=== PATIENT | male | born 1955 | race Caucasian/White ===

== ENCOUNTER 2021-11-26 12:45 | Inpatient (IN) | payer MEDICARE, OTHER ==
[~2021-11-26] VITALS: Ht 154.9 cm; Wt 69.9 kg
[2021-11-26 12:57] VITALS: BP 139/70
--- NOTE | 2021-11-26 13:19 | NUR ---
PT W/C ASSISTED TO ER BED 9
[2021-11-26] MEDS ORDERED: ALBUTEROL SULFATE/IPRATROPIU 3 ML SOL IH ONE (13:25)
--- NOTE | 2021-11-26 13:40 | NUR ---
66 Y/O Male BIB primary health care nurse from care facility for c/o SOB/cough x today. Pt on 10LPM via mask, 98% SP02. Pt is awake and able to answer simple yes or no questions. Resp even and unlabored. Coarse crackles heard x all bilat. Caregiver at bedside. PmHX: HTN, IDD, Depression, behavioral disorder, asthma, HLD NKA
[2021-11-26] MEDS ORDERED: NACL 0.9% 500 ML IV ONE (14:15)
[2021-11-26 14:34] LABS: ALBUMIN 3.2 g/dL (3.4-5.0); ANION GAP 13.4 (8-16); CARBON DIOXIDE 26.4 mmol/L (21-32); CREATININE 0.8 mg/dL (0.6-1.3); POTASSIUM 3.8 mmol/L (3.5-5.1); TOTAL BILIRUBIN 0.2 mg/dL (0.0-1.0)
--- NOTE | 2021-11-26 14:56 | NUR ---
COVID swab taken and walked to lab.
[2021-11-26 15:52] LABS: BASOPHILS % (AUTO) 0.4 % (0.0-2.0); EOSINOPHILS # (AUTO) 0.1 K/uL (0-0.4); EOSINOPHILS % (AUTO) 1.3 % (0.0-4.0); HEMATOCRIT 31.8 % (36-52); HEMOGLOBIN 10.8 g/dL (12.0-18.0); LYMPHOCYTES # (AUTO) 1.7 K/uL (2.0-11.5); LYMPHOCYTES % (AUTO) 24.3 % (20.5-51.1); MEAN CORPUSCULAR HEMOGLOBIN 29 pg (27-31); MEAN CORPUSCULAR HGB CONC 34 g/dL (33-37); MEAN CORPUSCULAR VOLUME 84.1 fL (80-94); MONOCYTES # (AUTO) 0.8 K/uL (0.8-1.0); MONOCYTES % (AUTO) 11.7 % (1.7-9.3); NEUTROPHILS # (AUTO) 4.2 K/uL (1.8-7.7); NEUTROPHILS % (AUTO) 62.3 % (42.2-75.2); PLATELET COUNT (AUTO) 172 K/uL (140-450); RED BLOOD CELL COUNT(AUTO) 3.78 MIL/uL (4.20-6.10); RED CELL DISTRIBUTION WIDTH 16.6 % (11.6-13.7); WHITE BLOOD COUNT (AUTO) 6.8 K/uL (4.8-10.8)
--- NOTE | 2021-11-26 18:00 | NUR ---
Patient appears to be resting comfortably in bed. Vital Signs within normal limits. Respirations even and unlabored.
--- NOTE | 2021-11-26 19:11 | NUR ---
Pt report given to RENÉE Velez. Transfer of care at this time.
--- NOTE | 2021-11-26 19:20 | NUR ---
pt appears to be resting with equal rise and fall of chest wall. sister/legal guardian glory is at bedside. pt is on library monitor, 02 via nc at 6l cont.
--- NOTE | 2021-11-26 20:41 | NUR ---
pt's diaper changed, only urine noted. good pericare provided. diaper and sheets changed.
--- NOTE | 2021-11-26 20:45 | NUR ---
pt provided with snacks. sister glory assisting.
[2021-11-26] MEDS ORDERED: CITA20TA15 PO (20:48)
[2021-11-26] MEDS ORDERED: ACET-2619 PO (20:48)
[2021-11-26] MEDS ORDERED: OLAN15TA1 PO (20:48)
[2021-11-26] MEDS ORDERED: OMEP20EC11 PO (20:48)
[2021-11-26] MEDS ORDERED: DIVA250T PO (20:48)
[2021-11-26] MEDS ORDERED: DOCU-61 PO (20:48)
[2021-11-26] MEDS ORDERED: METF-713 PO (20:48)
[2021-11-26] MEDS ORDERED: PRON INH (20:48)
[2021-11-26] MEDS ORDERED: ASPI-1822 PO (20:48)
[2021-11-26] MEDS ORDERED: ATOR20TA PO (20:48)
[2021-11-26] MEDS ORDERED: LORA10TA19 PO (20:48)
[2021-11-26] MEDS ORDERED: OLAN2.5T1 PO (20:48)
[2021-11-26] MEDS ORDERED: LISI5TAB18 PO (20:48)
--- NOTE | 2021-11-26 21:07 | NUR ---
Patient will be admitted to care of [facility]. Admited to tele. Will go to [id number]. Belongings list completed. Report to gay soliman.
[2021-11-26] MEDS ORDERED: ACETAMINOPHEN 325 MG TAB PO PRN ×2 (21:10)
[2021-11-26] MEDS ORDERED: MORPHINE SULFATE 2 MG/ML SYR IVP PRN (21:10)
[2021-11-26] MEDS ORDERED: guaiFENesin DM 200/20 MG-10 ML 10 ML UDC PO PRN (21:10)
[2021-11-26] MEDS ORDERED: NITROGLYCERIN 0.4 MG TAB SL PRN (21:10)
[2021-11-26] MEDS ORDERED: ZOLPIDEM 5 MG TAB PO PRN (21:10)
[2021-11-26] MEDS ORDERED: HYDROcodone/APAP 7.5/325 MG 1 TAB PO PRN (21:10)
[2021-11-26] MEDS ORDERED: POTASSIUM CHLORIDE 10 MEQ TABER PO PRN (21:10)
[2021-11-26] MEDS ORDERED: ONDANSETRON 4 MG/2 ML VIAL IM/IVP PRN (21:10)
[2021-11-26] MEDS ORDERED: DOCUSATE SODIUM 100 MG GELCAP PO PRN (21:10)
--- NOTE | 2021-11-26 21:10 | NUR ---
PT ADMITTED TO [facility] FROM ER THRU [facility]. PT DIAGNOSIS IS NSTEMI AND HYPONATREMIA. PT IS AOX1 ON NC AT 6L AND ON CARDIAC DIET. PT HAS SALINE LOCK ON LEFT AC GAUGE 20. PT IS WITH HER SISTER IN BED SIDE. HOSPITAL/ROOM ORIENTATION, BED BUTTON AND CALL LIGHT WAS ORIENTED. ALL SAFETY MEASURES IMPLEMENTED. BED WHEELS ON LOCKED AND BED IN LOW POSITION.
[2021-11-26 22:06] LABS: MAGNESIUM 1.2 mg/dL (1.8-2.4); PHOSPHORUS 2.7 mg/dL (2.5-4.9)
--- NOTE | 2021-11-26 22:10 | NUR ---
NOTIFIED DR. HAWLEY REGARDING PT CRITICAL VALUE. TROPONIN-310, MAGNESIUM 1.2 AND AMYLASE 474.
--- NOTE | 2021-11-26 22:26 | NUR ---
DR. MCKNIGHT ORDERED IV MAGNESIUM GRAMS FOR 1 TIME. NEW ORDER WAS MADE AND CARRIED OUT.
[2021-11-26] MEDS: DIVALPROEX 250 MG TABEC PO SCH (22:44)
--- NOTE | 2021-11-26 22:44 | NUR ---
SCHEDULE MEDICATION WAS GIVEN TO PT PER MD ORDER. PT TOLERATED IT WELL. ALL SAFETY MEASURES IMPLEMENTED. CALL LIGHT WITHIN REACH, BED WHEELS LOCK AND BED IN LOW POSITION.
[2021-11-26] MEDS: ENOXAPARIN 80 MG/0.8 ML SYR SUBQ SCH (22:49)
[2021-11-26] MEDS: MAG SULF 2000 MG/WATER PREMIX 50 ML IV SCH (23:13)
--- NOTE | 2021-11-26 23:13 | NUR ---
1ST BAG OF MAGNESIUM SULFATE 2000MG/STERILE WATER PREMIX 50ML WAS GIVEN TO PT PER MD ORDER. PT TOLERATED IT WELL. ALL SAFETY MEASURES IMPLEMENTED. CALL LIGHT WITHIN REACH, BED WHEELS ON LOCKED AND BED IN LOW POSITION.
[2021-11-27] VITALS: BP 111/98
[2021-11-27] MEDS: MAG SULF 2000 MG/WATER PREMIX 50 ML IV SCH (01:43)
--- NOTE | 2021-11-27 03:00 | NUR ---
PT IS SLEEPING. CHEST RISE AND FALL SYMMETRICALLY NOTED. RESPIRATION IS EVEN AND UNLABORED. ALL SAFETY MEASURES IMPLEMENTED. BED WHEELS ON LOCKED, BED IN LOW POSITION AND CALL LIGHT WITHIN REACH.
[2021-11-27 04:02] VITALS: BP 113/79
--- NOTE | 2021-11-27 05:00 | NUR ---
MORNING CARE WAS DONE TO PT. TOLERATED IT WELL. ALL SAFETY MEASURES IMPLEMENTED. CALL LIGHT WITHIN REACH, BED IN LOW POSITION AND BED WHEELS LOCKED.
[2021-11-27 06:54] LABS: BASOPHILS % (AUTO) 0.1 % (0.0-2.0); HEMATOCRIT 37.2 % (36-52); HEMOGLOBIN 12.4 g/dL (12.0-18.0); LYMPHOCYTES # (AUTO) 0.5 K/uL (2.0-11.5); LYMPHOCYTES % (AUTO) 6.1 % (20.5-51.1); MEAN CORPUSCULAR HEMOGLOBIN 28 pg (27-31); MEAN CORPUSCULAR HGB CONC 33 g/dL (33-37); MEAN CORPUSCULAR VOLUME 84.5 fL (80-94); MONOCYTES # (AUTO) 0.9 K/uL (0.8-1.0); MONOCYTES % (AUTO) 10.1 % (1.7-9.3); NEUTROPHILS # (AUTO) 7.1 K/uL (1.8-7.7); NEUTROPHILS % (AUTO) 83.7 % (42.2-75.2); PLATELET COUNT (AUTO) 190 K/uL (140-450); RED CELL DISTRIBUTION WIDTH 16.8 % (11.6-13.7); WHITE BLOOD COUNT (AUTO) 8.5 K/uL (4.8-10.8)
[2021-11-27 07:11] LABS: ANION GAP 13.9 (8-16); CARBON DIOXIDE 27.9 mmol/L (21-32); POTASSIUM 3.8 mmol/L (3.5-5.1)
--- NOTE | 2021-11-27 07:12 | NUR ---
PT IS STABLE. ENDORSED PT TO MORNING SHIFT NURSE FOR CONTINUITY OF CARE.
[2021-11-27 07:22] LABS: APPEARANCE,URINE CLEAR (CLEAR); BILIRUBIN,URINE NEGATIVE (NEGATIVE); BLOOD, URINE 1+ (NEGATIVE); COLOR,URINE YELLOW (YELLOW); LEUKOCYTE ESTERASE ,URINE NEGATIVE (NEGATIVE); NITRITE, URINE NEGATIVE (NEGATIVE); PH,URINE 6.5 (5.0-9.0); UGLUCOSE NEGATIVE (NEGATIVE)
--- NOTE | 2021-11-27 07:30 | NUR ---
RECEIVED REPORT FROM CHUTE MAN NURSE FOR CONTINUITY OF CARE, POC DISCUSSED. PT IS RESTING IN BED WITH SISTER AT BEDSIDE. PT ON 6L NC, CHEST RISING AND FALLING EVEN AND UNLABORED. NO S/S OF ACUTE DISTRESS. PT VERBAL, A&OX1, INCONTINENT ON DIAPER, LEFT AC 20G SALINE LOCK. SKIN INTACT. ALL SAFETY MEASURES IN PLACE, CALL LIGHT WITHIN REACH. WILL CONTINUE TO MONITOR.
[2021-11-27 07:40] LABS: BARBITURATE, URINE NEGATIVE ng/ml (NEG <=200); BENZODIAZEPINE, URINE NEGATIVE ng/mL (NEG <=200); CANNABINOID, URINE NEGATIVE ng/mL (NEG <=50); COCAINE, URINE NEGATIVE ng/mL (NEG <=300); OPIATE, URINE NEGATIVE ng/mL (NEG <=2000); PHENCYCLIDINE SCREEN,URINE NEGATIVE ng/mL (NEG <=25)
[2021-11-27 07:41] LABS: CALCIUM OXALATE CRYSTALS,UR None Seen /HPF (None Seen); COARSE GRANULAR CASTS,URINE None Seen /LPF (None Seen); FINE GRANULAR CASTS,URINE None Seen /LPF (None Seen); HYALINE CASTS, URINE None Seen /LPF (None Seen); OTHER CASTS, URINE None Seen /LPF (None Seen); OTHER CRYSTALS,URINE None Seen /HPF (None Seen); RED BLOOD CELL CASTS,URINE None Seen /LPF (None Seen); TRICHOMONAS,URINE None Seen /HPF (None Seen); TRIPLE PHOSPHATE CRYSTAL,UR None Seen /HPF (None Seen); URIC ACID CRYSTALS,URINE None Seen /HPF (None Seen); URINE AMORPHOUS URATE None Seen /HPF (None Seen); WAXY CASTS,URINE None Seen /LPF (None Seen); WBC,URINE NONE SEEN /HPF (0-5); YEAST,URINE None Seen /HPF (None Seen)
[2021-11-27 08:00] VITALS: BP 128/78
[2021-11-27] MEDS: ALBUTEROL 0.083% 2.5 MG/3 ML NEBU INH PRN ×2 (08:11→14:03)
--- NOTE | 2021-11-27 08:48 | NUR ---
PATIENT HAS BEEN SCREENED AND CATEGORIZED LOW NUTRITION RISK. PATIENT WILL BE SEEN WITHIN 7 DAYS OF ADMISSION. 12/03/[address]
[2021-11-27] MEDS ORDERED: CRUSHER, PILL MC ONE (08:58)
[2021-11-27] MEDS ORDERED: METOPROLOL 25 MG TAB PO SCH (09:00)
[2021-11-27] MEDS ORDERED: NON-FORMULARY ITEM (Omeprazole* (Prilosec*) 20 MG) PO SCH (09:00)
[2021-11-27] MEDS: lisinopriL 5 MG TAB PO SCH (09:07)
[2021-11-27] MEDS: ENOXAPARIN 80 MG/0.8 ML SYR SUBQ SCH (09:10)
[2021-11-27] MEDS: ECOTRIN 81 MG TABEC PO SCH (09:11)
[2021-11-27] MEDS: DIVALPROEX 250 MG TABEC PO SCH ×2 (09:11→21:01)
[2021-11-27] MEDS: PANTOPRAZOLE 40 MG TABEC PO SCH (09:11)
[2021-11-27] MEDS: DOCUSATE SODIUM 100 MG GELCAP PO SCH (09:12)
[2021-11-27] MEDS ORDERED: LOVENOX 1MG/KG Q12H SUBQ SCH (09:25)
--- NOTE | 2021-11-27 09:30 | NUR ---
MARY MEDICATION ADMINISTERED PER MD ORDER, PT TOLERATED ADMINISTRATION. SISTER AT BEDSIDE, EDUCATION PROVIDED, SISTER VERBALIZED UNDERSTANDING. PT A&OX1, AWAKE, DEV DELAY. ON 3L NC NO S/S OF ACUTE DISTRESS. PT LUNG SOUNDS COARSE, DIMINISHED. PT IV PATENT AND INTACT, LEFT AC 20 G, REINFORCED WITH TAPE. SITTING UP IN BED EATING BREAKFAST. ALL SAFETY MEASURES IN PLACE, CALL LIGHT WITHIN REACH. WILL CONTINUE TO MONITOR.
[2021-11-27] MEDS: AZITHROMYCIN 500 MG in DEXTROSE 5% 250 ML IV SCH (10:47)
--- NOTE | 2021-11-27 11:00 | NUR ---
MARY ABX MEDICATION ADMINISTERED PER MD ORDER, PT TOLERATED ADMINISTRATION. PT IV PATENT AND INTACT. NOTIFIED DIRECTOR OF ACCOUNTING REGARDING PT NEEDING TO BE CLEANED AND REPOSITIONED. PT STABLE, WITH NO ACUTE S/S OF DISTRESS. ALL SAFETY MEASURES IN PLACE. CALL LIGHT WITHIN REACH. WILL CONTINUE TO MONITOR.
--- NOTE | 2021-11-27 11:20 | NUR ---
DC PLANNIN YRS OLD MALE PATIENT WAS ADMITTED FROM [facility]) WITH A DX OF NSTEMI, HYPONATREMIA. PATIENT HAS A HX OF ASTHMA AND DM. CXR SHOWED NO EVIDENCE OF ACUTE CARDIOPULMONARY. RAPID COVID TEST NEGATIVE. ON 3L/NC SATING 95%. ADMINISTERED IVF, IV ABX AZITHROMYCIN AND CONTINUED HOME MEDS. CONSULTED WITH NEPHRO AND CARDIO. FAXED THE STABLE FOR TRANSFER TO [facility]. CM TO FOLLOW Addendum: 11/28/21 at 0906 by Ember Rivers RN DC PLANNING: CALLED [facility] [phone] SPOKE WITH LAILA CASE WET POUR SUPERVISOR STATED THEY HAVE THE NOTIFICATION, BECAUSE OF THE HIGH [employer]UME DIDN'T REVIEW THE CASE AND NOT ASSIGNED WITH CM YET, AND REQUESTED THE ORDER TO BE FAXED AGAIN. CM FAXED THE STABLE FOR TRANSFER TO [phone]. CM TO FOLLOW Addendum: 11/28/21 at 1146 by Ember Rivers RN DC PLANNING: CALLED [facility] SPOKE WITH [facility] DISCUSSED THE DC WITH [facility] PER [facility] THEY CAN NOT TAKE PATIENT WITH OXYGEN, THEY ARE NOT LICENSED TO TAKE CARE OF OXYGEN. SPOKE WITH PT'S SISTER AGREED TO PLACE HIM TEMPORARY. FAXED TO [facility] AWAITING FOR [facility] RESPONSE. CM TO FOLLOW Addendum: 11/28/21 at 1600 by Ember Rivers RN DC PLANNING: RECEIVED A FAX SNF PLACEMENT FORM FROM [facility] , FILLED OUT THE FORM AND SENT IT BACK. DC PLAN AWAITING FOR [facility] TO PLACE HIM IN SKILLED FACILITY. CM TO FOLLOW Addendum: 11/29/21 at 1112 by Ember Rivers RN DC PLANNING: PATIENT IS ON ROOM AIR SATING 97% NO NEED TO GO TO SNF. CALLED [facility] SPOKE WITH [facility] OK TO ACCEPT HIM. CALLED [facility] SPOKE WITH DESIRE CM NOTIFIED HER THAT PT NO LONGER NEEDS SNF WILL GO BACK TO [facility]. PT SISTER ALLIE AT THE BED SIDE WILLING TO TAKE HIM TO THE [facility]. NOTIFIED JOSSELIN CHINCHILLA.
[2021-11-27 12:00] VITALS: BP 127/80
--- NOTE | 2021-11-27 12:00 | NUR ---
PT STABLE IN BED WITH NO ACUTE S/S OF DISTRESS. ALL SAFETY MEASURES IN PLACE, CALL LIGHT WITHIN REACH. WILL CONTINUE TO MONITOR.
--- NOTE | 2021-11-27 14:36 | NUR ---
EDUCATED ON HOW WE NEED TO COLLECT URINE SAMPLE, STATED THAT HE CAN USE THE URINAL WHEN HE IS AWAKE.
--- NOTE | 2021-11-27 15:19 | NUR ---
TOURING PRODUCTION MANAGER AT BEDSIDE CLEANING PT. PT STABLE ON 2L NC, ALL SAFETY MEASURES IN PLACE. CALL LIGHT WITHIN REACH. WILL CONTINUE TO MONITOR.
[2021-11-27] MEDS ORDERED: DEXTROSE 50% 50 ML SYR IVP PRN (15:20)
[2021-11-27 16:00] VITALS: BP 115/64
--- NOTE | 2021-11-27 16:19 | NUR ---
ROUNDED ON PT, PT RESTING IN BED ON 2L NC. SISTER AND BROTHER IN LAW AT BEDSIDE. ALL NEEDS ARE MET, NO QUESTIONS AT THIS TIME. ALL SAFETY MEASURES IN PLACE, CALL LIGHT WITHIN REACH. WILL CONTINUE TO MONITOR.
[2021-11-27] MEDS: BLOOD GLUCOSE MONITORING 1 DEV DEV FS SCH ×2 (16:39→21:13)
[2021-11-27] MEDS: INSULIN LISPRO SLIDING SCALE 100 UNITS/ML VIAL SUBQ PRN (16:39)
--- NOTE | 2021-11-27 16:44 | NUR ---
177 BLOOD GLUCOSE, 2UNITS OF INSULIN ADMINISTERED TO RIGHT LOWER QUAD. PT TOLERATED. URINE SAMPLE COLLECTED AND LABELED. ALL SAFETY MEASURES IN PLACE, SISTER VERBALIZED ALL NEEDS ARE MET AT THIS TIME. CALL LIGHT WITHIN REACH. WILL CONTINUE TO MONITOR.
[2021-11-27] MEDS ORDERED: ATORVASTATIN 20 MG TAB PO SCH (17:00)
--- NOTE | 2021-11-27 18:33 | NUR ---
PT SITTING UP IN BED WITH SISTER AT BEDSIDE, REPORTS ALL NEEDS ARE CURRENTLY BEING MET. EATING DINNER WITH ASSISTANCE FROM SISTER. ON 2L NC. ALL NEEDS HAVE BEEN MET THROUGHOUT THE SHIFT. PT STABLE. ON TELE. WILL ENDORSE PT AND POC TO SIGNS CLEANER NURSE. ALL SAFETY MEASURES IN PLACE, CALL LIGHT WITHIN REACH.
--- NOTE | 2021-11-27 19:00 | NUR ---
RECEIVED REPORT FROM MORNING SHIFT NURSE. PT IS LYING ON THE BED WITH SISTER ON BEDSIDE. PT IS AOX1, ON 2L NC AND HAS MECHANICAL SOFT CARDIAC DIET. PT WANTS FOR THE ASSISTANCE TO BED SIDE COMMAND AND TRY TO DEFECATE, BUT THERE'S NO BOWEL MOVEMENT. PT HAS LEFT AC G20, SALINE LOCK. ALL SAFETY MEASURES IMPLEMENTED, CALL LIGHT WITHIN REACH, BED WHEELS LOCKED AND BED IN LOW POSITION.
[2021-11-27 20:00] VITALS: BP 111/61
[2021-11-27 20:52] LABS: URINE SODIUM, RANDOM 20 mmol/l (40-220)
[2021-11-27] MEDS ORDERED: ENOXAPARIN 80 MG/0.8 ML SYR SUBQ SCH (21:00)
--- NOTE | 2021-11-27 21:01 | NUR ---
ALL SCHEDULE MEDICATION WAS GIVEN TO PT PER MD ORDER. PT TOLERATED IT WELL. ALL SAFETY MEASURES IMPLEMENTED, CALL LIGHT WITHIN REACH, BED WHEELS LOCKED AND BED IN LOW POSITION.
[2021-11-27] MEDS: OLANZapine 5 MG TAB PO SCH (21:02)
[2021-11-27] MEDS: CITALOPRAM 20 MG TAB PO SCH (21:02)
--- NOTE | 2021-11-27 22:00 | NUR ---
CHANGED DIAPER PER PT REQUESTED. PM CARE WAS DONE. ALL SAFETY MEASURES IMPLEMENTED. BED WHEELS ON LOCK, BED IN LOW POSITION AND CALL LIGHT WITHIN REACH.
[2021-11-28] VITALS: BP 121/62
--- NOTE | 2021-11-28 | NUR ---
PT IS SLEEPING. CHEST RISE AND FALL SYMMETRICALLY NOTED WITH SINUS TACHY RHYTHM AND WITH PULSE OF 108 SATING AT 98%. RESPIRATION IS EVEN AND UNLABORED. ALL SAFETY MEASURES IMPLEMENTED. BED WHEELS ON LOCK, BED IN LOW POSITION AND CALL LIGHT WITHIN REACH.
--- NOTE | 2021-11-28 02:00 | NUR ---
CHECKED THE PT, STILL SLEEPING. CHEST RISE AND FALL SYMMETRICALLY NOTED. RESPIRATION IS EVEN AND UNLABORED. ALL SAFETY MEASURES IMPLEMENTED. BED WHEELS LOCKED, BED IN LOW POSITION AND CALL LIGHT WITHIN REACH.
[2021-11-28 04:00] VITALS: BP 119/63
--- NOTE | 2021-11-28 04:00 | NUR ---
PT VS, BP-119/63, P-81, T-98.3, RR-18 SATING AT 99%. NO COMPLAIN OF PAIN NOTED AND NO S/S OF RESPIRATORY DISTRESS NOTED. ALL SAFETY MEASURES IMPLEMENTED. BED WHEELS LOCKED, BED IN LOW POSITION AND CALL LIGHT WITHIN REACH.
[2021-11-28] MEDS: BLOOD GLUCOSE MONITORING 1 DEV DEV FS SCH ×4 (06:51→20:24)
--- NOTE | 2021-11-28 06:51 | NUR ---
PT BLOOD GLUCOSE IS 95, NO INSULIN COVERAGE NEEDED. ALL SAFETY MEASURES IMPLEMENTED. CALL LIGHT WITHIN REACH, BED WHEELS LOCKED AND BED IN LOW POSITION.
--- NOTE | 2021-11-28 07:19 | NUR ---
PT IS STABLE. ENDORSED PT TO MORNING SHIFT NURSE FOR CONTINUITY OF CARE.
[2021-11-28 07:23] LABS: BASOPHILS % (AUTO) 0.2 % (0.0-2.0); EOSINOPHILS # (AUTO) 0.1 K/uL (0-0.4); EOSINOPHILS % (AUTO) 0.9 % (0.0-4.0); HEMATOCRIT 30.5 % (36-52); HEMOGLOBIN 10.3 g/dL (12.0-18.0); LYMPHOCYTES # (AUTO) 1.4 K/uL (2.0-11.5); LYMPHOCYTES % (AUTO) 13.9 % (20.5-51.1); MEAN CORPUSCULAR HEMOGLOBIN 28 pg (27-31); MEAN CORPUSCULAR HGB CONC 34 g/dL (33-37); MEAN CORPUSCULAR VOLUME 83.8 fL (80-94); MONOCYTES # (AUTO) 0.8 K/uL (0.8-1.0); MONOCYTES % (AUTO) 7.7 % (1.7-9.3); NEUTROPHILS # (AUTO) 7.7 K/uL (1.8-7.7); NEUTROPHILS % (AUTO) 77.3 % (42.2-75.2); PLATELET COUNT (AUTO) 172 K/uL (140-450); RED BLOOD CELL COUNT(AUTO) 3.64 MIL/uL (4.20-6.10); RED CELL DISTRIBUTION WIDTH 17.3 % (11.6-13.7); WHITE BLOOD COUNT (AUTO) 9.9 K/uL (4.8-10.8)
[2021-11-28 07:29] LABS: ANION GAP 9.4 (8-16); CARBON DIOXIDE 29.4 mmol/L (21-32); CREATININE 0.9 mg/dL (0.6-1.3); POTASSIUM 3.8 mmol/L (3.5-5.1)
--- NOTE | 2021-11-28 07:30 | NUR ---
RECEIVED REPORT FROM NIGHTSHIFT NURSE. PT A/O X1. ON 2L NC. HOB ELEVATED. NO SOB OR RESPIRATORY DISTRESS. LAC #20 SL. SISTER AT BEDSIDE. NEEDS ALL MET AT THIS TIME. SAFETY MEASURES IN PLACE.
[2021-11-28] MEDS: ALBUTEROL 0.083% 2.5 MG/3 ML NEBU INH PRN (07:56)
--- NOTE | 2021-11-28 07:56 | NUR ---
LOC AWAKE AND ALERT RESPONSIVE TO GLASS DEPOSITION TENDER VERBAL COMMANDS SISTER AT BEDSIDE RECEIVED ON SUPPLEMENTAL OXYGEN AT 2 LPM VIA NC MODERATE NPC DURIONG THERAPY POST HHN THERAPY PLACED ON ROOM AIR TRIAL BA/RN NOTIFIED
[2021-11-28 08:00] VITALS: BP 129/71
--- NOTE | 2021-11-28 08:45 | NUR ---
LOC AWAKE AND ALERT IN SFW POSITION NO APPARENT DISTRESS NOTED GOOD CHEST RISE SATURATION 88% ON ROOM AIR PLACED BACK ON SUPPLEMENTAL OXYGEN AT 2 LPM VIA NC MODERATE NPC X 2 DURING INTERACTION WITH PATIENT BA/RN IN ROOM NOTIFIED OF ROOM AIR TRIAL SATURATION OF 88% AND PLACEMENT OF SUPPLEMENTAL OXYGEN AT 2 LPM VIA NC
[2021-11-28] MEDS: PANTOPRAZOLE 40 MG TABEC PO SCH (08:46)
[2021-11-28] MEDS: ECOTRIN 81 MG TABEC PO SCH (08:46)
[2021-11-28] MEDS: lisinopriL 5 MG TAB PO SCH (08:46)
[2021-11-28] MEDS: DIVALPROEX 250 MG TABEC PO SCH ×2 (08:46→20:25)
[2021-11-28] MEDS: DOCUSATE SODIUM 100 MG GELCAP PO SCH (08:47)
[2021-11-28] MEDS: ATORVASTATIN 20 MG TAB PO SCH (08:47)
[2021-11-28] MEDS: ENOXAPARIN 40 MG/0.4 ML SYR SUBQ SCH (08:52)
--- NOTE | 2021-11-28 08:55 | NUR ---
ON OR ABOUT THIS TIME SPOKE TO JOSE ARMANDO DELIVERY CREW WORKER IN REGARDS TO ROOM AIR TRIAL NOTED AT 0756 AND 0817
[2021-11-28] MEDS: AZITHROMYCIN 500 MG in DEXTROSE 5% 250 ML IV SCH (09:06)
--- NOTE | 2021-11-28 09:30 | NUR ---
POC DISCUSSED WITH SISTER. VERBALIZED UNDERSTANDING. PT IN NO ACUTE DISTRESS. ON 2L NC. NO SOB OR RESPIRATORY DISTRESS. HOB ELEVATED. NEEDS ALL MET AT THIS TIME. SAFETY MEASURES IN PLACE.
[2021-11-28] MEDS: INSULIN LISPRO SLIDING SCALE 100 UNITS/ML VIAL SUBQ PRN ×2 (11:09→20:32)
[2021-11-28 12:00] VITALS: BP 125/70
--- NOTE | 2021-11-28 13:30 | NUR ---
PT OFF TO COLONOSCOPY Addendum: 11/28/21 at 1515 by Charley Watson RN RN WRONG PATIENT
[2021-11-28 16:00] VITALS: BP 121/58
--- NOTE | 2021-11-28 16:00 | NUR ---
BLOOD GLUCOSE AT 47. D50 GIVEN IVP. BLOOD GLUCOSE RECHECK IN 10 MINUTES WITH BLOOD GLUCOSE 292. CONTACTED . ORDER TO HOLD AFTERNOON SLIDING SCALE INSULIN.
--- NOTE | 2021-11-28 16:00 | NUR ---
PT AWAKE AND ALERT. GOWN CHANGED. PT REPOSITIONED. HOB ELEVATED. NO SOB NOTED. ON 2L NC. ABLE TO ANSWER QUESTIONS TO NAME AND PT STATES, "YUCKY" WHILE POINTING TO HIS DINNER TRAY. VANILLA PUDDING PROVIDED. PT EATING WITH GOOD APPETITE. PT GIVING A THUMBS UP. NEEDS ALL MET AT THIS TIME. SAFETY MEASURE IN PLACE.
--- NOTE | 2021-11-28 17:09 | NUR ---
PT PULLED OUT IV ON L AC. R AC #22 IV INSERTED WITH POSITIVE BLOOD RETURN, FLUSH WITH NS, TEGADERM APPLIED. PT TOLERATED WELL. PT AWAKE AND ALERT, SMILING AND TALKING SIMPLE WORDS. HOB ELEVATED, BED LOW AND LOCKED, SAFETY MEASURES IN PLACE.
--- NOTE | 2021-11-28 19:15 | NUR ---
REPORT GIVEN TO NIGHTSHIFT NURSE NOHEMI FOR CONTINUITY OF CARE.
--- NOTE | 2021-11-28 19:30 | NUR ---
GET THE REPORT FROM MORNING NURSE BA, PATIENT IS LYING ON BED WITH SISTER SITTING ON BED SITE,PATIENT IS ALERT ORIENTED X1, PATIENT IS RECEIVING OXYGEN 1 LITER VIA NASAL CANNULA, ALL FALL PRECAUTION MEASURE ARE IN PLACE, CALL LIGHT IS WITHIN THE REACH, WILL CONTINUE TO MONITOR PATIENT.
--- NOTE | 2021-11-28 19:56 | NUR ---
SPO2 100%. ON 2L NC. TITRATED O2 TO 1L NC SPO2 99%. PT IS IN NO RESPIRATORY DISTRESS AT THIS TIME. RN WAS NOTIFIED. PT CAREGIVER AT BEDSIDE. WILL CONTINUE TO MONITOR PT.
[2021-11-28 20:00] VITALS: BP 137/79
[2021-11-28] MEDS: OLANZapine 5 MG TAB PO SCH (20:25)
[2021-11-28] MEDS: CITALOPRAM 20 MG TAB PO SCH (20:25)
--- NOTE | 2021-11-28 20:36 | NUR ---
PATIENT IS LYING ON BED, VITAL SIGN IS WITHIN THE NORMAL RANGE, NO ANY COMPLAIN OF PAIN OR SHORTNESS OF BREATH AT THIS TIME, ALL DUE MEDICATION IS GIVEN PER DOCTOR ORDER, PATIENT BLOOD SUGAR IS 167, 2 UNIT INSULIN IS GIVEN PER DOCTOR ORDER, CALL LIGHT IS WITHIN THE REACH, WILL CONTINUE TO MONITOR PATIENT.
--- NOTE | 2021-11-28 23:20 | NUR ---
CHECKED ON PT. SPO2 97% TO 98% ON 1L NC. PLACED PT ON ROOM AIR WITH SPO2 OF 92 TO 93%. RN NOTIFIED. CAREGIVER AT BEDSIDE. WILL CONTINUE TO MONITOR PT.
[2021-11-29] VITALS: BP 117/68
--- NOTE | 2021-11-29 01:10 | NUR ---
CHECKED ON PT. PT ON ROOM AIR WITH SPO2 OF 92 TO 94 TO 96%. RN NOTIFIED. CAREGIVER/SISTER AT BEDSIDE. WILL CONTINUE TO MONITOR PT.
--- NOTE | 2021-11-29 03:54 | NUR ---
CHECKED ON PT. PT ON ROOM AIR WITH SPO2 OF 94 TO 94% TO 96%. RN NOTIFIED. CAREGIVER/SISTER AT BEDSIDE. WILL CONTINUE TO MONITOR PT.
[2021-11-29 04:00] VITALS: BP 141/93
--- NOTE | 2021-11-29 04:02 | NUR ---
VITAL SIGN IS WITHIN THE NORMAL RANGE, NO ANY COMPLAIN OF PAIN OR SHORTNESS OF BREATH AT THIS TIME, CALL LIGHT IS WITHIN THE REACH, WILL CONTINUE TO MONITOR PATIENT.
[2021-11-29 06:08] LABS: BASOPHILS % (AUTO) 0.3 % (0.0-2.0); EOSINOPHILS # (AUTO) 0.2 K/uL (0-0.4); EOSINOPHILS % (AUTO) 1.9 % (0.0-4.0); HEMATOCRIT 27.8 % (36-52); HEMOGLOBIN 9.4 g/dL (12.0-18.0); LYMPHOCYTES # (AUTO) 1.5 K/uL (2.0-11.5); LYMPHOCYTES % (AUTO) 17.5 % (20.5-51.1); MEAN CORPUSCULAR HEMOGLOBIN 28 pg (27-31); MEAN CORPUSCULAR HGB CONC 34 g/dL (33-37); MEAN CORPUSCULAR VOLUME 83.3 fL (80-94); MONOCYTES # (AUTO) 0.6 K/uL (0.8-1.0); MONOCYTES % (AUTO) 6.7 % (1.7-9.3); NEUTROPHILS # (AUTO) 6.2 K/uL (1.8-7.7); NEUTROPHILS % (AUTO) 73.6 % (42.2-75.2); PLATELET COUNT (AUTO) 175 K/uL (140-450); RED BLOOD CELL COUNT(AUTO) 3.34 MIL/uL (4.20-6.10); RED CELL DISTRIBUTION WIDTH 16.7 % (11.6-13.7); WHITE BLOOD COUNT (AUTO) 8.4 K/uL (4.8-10.8)
[2021-11-29 06:18] LABS: ANION GAP 8.7 (8-16); CARBON DIOXIDE 30.3 mmol/L (21-32); CREATININE 0.8 mg/dL (0.6-1.3)
[2021-11-29] MEDS: BLOOD GLUCOSE MONITORING 1 DEV DEV FS SCH (06:39)
--- NOTE | 2021-11-29 06:44 | NUR ---
PATIENT BLOOD SUGAR IS 79, NO INSULIN COVERAGE NEEDED, CALL LIGHT IS WITHIN THE REACH, WILL CONTINUE TO MONITOR PATIENT.
--- NOTE | 2021-11-29 07:15 | NUR ---
GAVE THE REPORT TO MORNING NURSE NGUYEN FOR CONTINUOUS OF CARE, PATIENT IS STABLE.
--- NOTE | 2021-11-29 07:15 | NUR ---
RECEIVED REPORT FROM NIGHTSNCFT NURSE NOHEMI FOR CONTINUITY OF CARE. PT IS AWAKE AND ALERT. A/OX1 TO SELF AND SPEAKS GARBLED. PT IS ON 1L NC, SKIN INTACT, AND INCONTINENT OF THE BOWEL AND BLADDER. PT IS AMBULATORY WITH WALKER AND ASSISTANCE. SISTER IS AT THE BEDSIDE, VOLUNTARY SITTER. PT DENIES ANY PAIN, AND DOES NOT SHOW SIGNS OF DISTRESS. PT IN STABLE CONDITION.
[2021-11-29 08:00] VITALS: BP 134/88
--- NOTE | 2021-11-29 09:00 | NUR ---
PER PHYSICAL THERAPIST, PT WAS ABLE TO AMBULATE WELL ON WALKER WITH ASSISTANCE. PT SPO2 AT 94% ON ROOM AIR POST AMBULATION. PT TOLERATED ACTIVITY WELL.
[2021-11-29] MEDS: DOCUSATE SODIUM 100 MG GELCAP PO SCH (09:16)
[2021-11-29] MEDS: PANTOPRAZOLE 40 MG TABEC PO SCH (09:16)
[2021-11-29] MEDS: ATORVASTATIN 20 MG TAB PO SCH (09:17)
[2021-11-29] MEDS: lisinopriL 5 MG TAB PO SCH (09:17)
[2021-11-29] MEDS: ECOTRIN 81 MG TABEC PO SCH (09:18)
[2021-11-29] MEDS: DIVALPROEX 250 MG TABEC PO SCH (09:18)
[2021-11-29] MEDS: ENOXAPARIN 40 MG/0.4 ML SYR SUBQ SCH (09:26)
[2021-11-29] MEDS: AZITHROMYCIN 500 MG in DEXTROSE 5% 250 ML IV SCH (10:00)
[2021-11-29 12:14] VITALS: BP 126/76
--- NOTE | 2021-11-29 13:15 | NUR ---
DISCHARGE INSTRUCTIONS GIVEN TO PATIENT AND SISTER VIA BEDSIDE, SISTER WAS ABLE TO SIGN ALL PAPERWORK AND VERBALIZED UNDERSTANDING. PT TRANSPORTED TO POV VIA WHEELCHAIR.
--- NOTE | 2021-11-29 16:51 | NUR ---
PHYSICAL THERAPY CO-SIGN The Physical Therapy Progress Notes documented by Practice Performance Manager have been reviewed. Reviewed/Co-Signed by: Elizabet Ernandez Documentation Done by:JEFFREY GALVEZ PTA Addendum: 11/29/21 at 1651 by Elizabet Ernandez PT Amended: Links added.
== END 2021-11-29 13:39 | disposition home or self-care (01) | DRG 640 ==
LOC: MED 12:45 → MTU 18:36
PROVIDERS: ADMIT Student in an Organized Health Care Education/Training Program; ATTEND Student in an Organized Health Care Education/Training Program
DX: E87.1 Hypo-osmolality and hyponatremia (principal); J96.01 Acute respiratory failure with hypoxia; F72 Severe intellectual disabilities; E11.9 Type 2 diabetes mellitus without complications; I10 Essential (primary) hypertension; E78.5 Hyperlipidemia, unspecified; I45.10 Unspecified right bundle-branch block; Z20.822 Contact with and (suspected) exposure to COVID-19; R63.1 Polydipsia; E83.42 Hypomagnesemia; G40.909 Epilepsy, unspecified, not intractable, without status epilepticus; F41.9 Anxiety disorder, unspecified; Z79.82 Long term (current) use of aspirin; Z79.899 Other long term (current) drug therapy; R07.89 Other chest pain; R07.9 Chest pain, unspecified
CPT/HCPCS: 36415; 36600; 71045; 80048; 80053; 80305; 81001; 82150; 82533; 82803; 82948; 83690; 83735; 83880; 83935; 84100; 84133; 84300; 84443; 84484; 84550; 85025; 87081; 93005; 94640; 96360; 97112; 97116; 97530; 99291; J0456; J1650; J1815; J3475; J7030; J7060; J7613; Q0092